=== PATIENT | male | born 1990 | race Caucasian/White ===

== ENCOUNTER 2021-10-02 13:54 | Emergency (ER) | payer MEDICAID, SELFPAY ==
[2021-10-02 14:07] VITALS: BP 113/45; PULSE 76; RESP 16; TEMP 36.1; O2SAT 100; BMI 25.8
[2021-10-02 15:58] LABS: Appearance Urine CLEAR; Color Urine YELLOW; Glucose Urine UA NEG (NEG); Leukocyte Esterase Urine NEG (NEG); Nitrite Urine NEG (NEG); Urine Blood NEG (NEG); Urine Ketones NEG (NEG); Urine Protein NEG (NEG-TRACE)
[2021-10-02] MEDS: cefTRIAXone sodium 500 MG, Lidocaine HCl 1 % MPF 1 ML IM (16:38)
[2021-10-02] MEDS: Lidocaine HCl 1 % 20 ML VIAL INFILTRATI (16:39)
--- NOTE | 2021-10-02 19:29 | ED.MALEGU ---
HPI - Male Genitourinary General Chief complaint: Urogenital-Male Stated complaint: STD CHECK Time Seen by Provider: 10/02/21 15:39 Source: patient Mode of arrival: ambulatory Limitations: no limitations History of Present Illness HPI Narrative: 30-year-old male who had unprotected vaginal sex 1 week ago and has recently had discharge from his penis. States he has some mild discomfort when he urinates. No pain in his testicles, no penile lesions. Patient is also concerned about red area in his right groin that he states is from shaving. Related Data Previous Rx's Medication Instructions Recorded doxycycline hyclate 100 mg tablet 100 mg PO BID 10 Days #20 tab 10/02/21 mupirocin 2 % topical ointment 1 appl TOPICAL BID #22 g 10/02/21 Allergies Allergy/AdvReac Type Severity Reaction Status Date / Time No Known Allergies Allergy Verified 10/02/21 14:06 Review of Systems Constitutional: Constitutional: Denies body ache(s), Denies chills, Denies fatigue, Denies fever(s), Denies headache(s), Denies malaise and Denies weakness Eyes: Eyes: Denies diplopia ENT: Denies vertigo, Denies dizziness, Denies headache(s) and Denies throat swelling Cardiovascular: Cardiovascular: Denies chest pain, Denies syncope, Denies leg edema, Denies lightheadedness, Denies Loss of Consciousness, Denies palpitations and Denies dyspnea Respiratory: Respiratory: Denies chest congestion, Denies cough and Denies dyspnea Gastrointestinal: Gastrointestinal: Denies abdominal pain, Denies hematochezia, Denies constipation, Denies diarrhea and Denies vomiting Genitourinary: Genitourinary: Denies hematuria, Denies difficulty urinating, Denies genital lesions, Denies genital pain, Reports dysuria, Denies flank pain, Reports penile discharge, Denies scrotal swelling, Denies testicular mass, Denies testicular pain, Denies urinary frequency, Denies urinary hesitancy, Denies urinary incontinence and Denies urinary urgency Musculoskeletal: Musculoskeletal: Reports no additional musculoskeletal complaints Neurologic: Denies confusion, Denies vertigo, Denies dizziness, Denies syncope, Denies headache(s) and Denies weakness Psychiatric: Psychiatric: Denies anxiety, Denies confusion and Denies depression Endocrine: Endocrine: Denies fatigue and Denies palpitations Allergic/Immunologic: Allergic/Immunologic: Denies throat swelling PMFSH Past Medical History Medical History (Updated 10/02/21 @ 16:17 by DANY Rothman) No known health problems Social History Social History Advance Directives: Yes Advance Directives Information Provided: Yes Advance Directives on File: No Physical Exam Vital Signs: Vital Signs: Last Vital Signs Temp 97.0 F 10/02/21 14:07 Pulse 76 10/02/21 14:07 Resp 16 10/02/21 14:07 BP 113/45 L 10/02/21 14:07 Pulse Ox 100 10/02/21 14:07 BMI result Body Mass Index 25.8 Const: General: No confusion Nutritional Appearance: well nourished Orientation/consciousness: No confusion Limitations: no limitations Eyes: Conjunctivae: conjunctivae normal Pupils: Equal, round and reactive pupils present EOM: EOMs intact bilaterally Neck: Neck: Yes full ROM, Yes no lymphadenopathy and Yes supple Resp: Effort & Inspection: normal respiratory effort and able to speak in complete sentences Auscultation: clear to auscultation bilaterally, no crackles, no rales, no rhonchi and no wheezes Cardio: Rate: regular rate Rhythm: regular rhythm Heart sounds: S1 normal heart sound present and S2 normal heart sound present GI: Inspection: Yes normal to inspection Palpation (GI): Soft to palpation, nontender, no guarding and not rigid Percussion: Yes normal to percussion Auscultation: normal bowel sounds : General: Yes no CVA tenderness Male General Exam: Yes normal external exam and No Genital lesions present Penis: normal penis, circumcised, no ecchymosis, not edematous, not erythematous, no masses, no nodules, no papules, no pustules, no vesicles, foreskin retracts, no paraphimosis, no phimosis, no swelling, no ulcerations and No Genital lesions present Meatus: meatus normal Scrotum: scrotum normal Testes: Testes normal, epididymides normal, no testicular mass, no testicular swelling and no testicular tenderness Back/Spine/Pelvis: Back: no CVA tenderness Skin: General skin exam: no rashes or lesions noted Neuro: General: No confusion Cranial nerves: Yes Equal, round and reactive pupils present Extrem: General: Yes normal to inspection and Yes full ROM Psych: Appearance: grossly normal Affect: normal affect Attitude: cooperative Thought process: Normal thought process present Course Course Course Narrative: 30-year-old male here for concerns of STDs. Patient has a normal genital exam, mild folliculitis in the right side of his groin. Got blood work, HIV, hepatitis, syphilis, treated for folliculitis with mupirocin, got urine for gonorrhea and Chlamydia, treated for gonorrhea and chlamydia with ceftriaxone and doxycycline. Extensive discussion with patient about safe sex practices, counseled patient how to follow-up for his STD results MDM - Male Genitourinary Lab Data Labs: Lab Results 10/02/21 Range/Units 15:41 Urine Color YELLOW Urine Appearance CLEAR Urine pH 7.0 (5.0-8.0) Ur Specific [place] [facility] 1.020 (1.005-1.025) Urine Protein NEG (NEG-TRACE) MG/DL Urine Glucose (UA) NEG (NEG) MG/DL Urine Ketones NEG (NEG) MG/DL Urine Blood NEG (NEG) Urine Nitrite NEG (NEG) Ur Leukocyte Esterase NEG (NEG) Discharge Plan Discharge Clinical Impression: Possible exposure to STD Patient Disposition: Home, Self-Care Instructions: Sexually Transmitted Diseases (ED), Safe Sex Practices (ED) Additional Instructions: Please practice safe sex, use condoms. We have treated due for gonorrhea and chlamydia, take the antibiotics I prescribed for 7 days. We will call you if your syphilis, HIV, or hepatitis labs come back positive. As we discussed, HIV will not result positive right away, and he must follow-up with your primary care provider for serial lab draws to determine your HIV status. Please return to emergency room for any new or concerning symptoms. Please apply the cream I prescribed to your groin area that is red twice a day for a week. Prescriptions: New mupirocin 2 % ointment 1 appl topical BID Qty: 22 0RF doxycycline hyclate 100 mg tablet 100 mg PO BID 10 Days Qty: 20 0RF Interventions: ED Discharge Assessment Last Done: 10/02/21 16:43 Discharge Date/Time: 10/02/21 16:45
[2021-10-03 01:02] LABS: CT PCR DETECTED (Not Detect.); NG PCR NOT DETECTED (Not Detect.)
[2021-10-03 07:49] LABS: ~HepC Num1 0.19 S/CO (0.00-0.79); ~Hepatitis C Antibody Nonreactive (Nonreactive)
[2021-10-03 07:57] LABS: Syphilis Screen Nonreactive (Nonreactive)
[2021-10-03 08:05] LABS: HBS Num1 > 1000.00 mIU/mL (0-7.99); HIV AB/AG Nonreactive (Nonreactive); HIV Num 1 0.11 S/CO (0.00-0.99); Hepatitis B Core Antibody Nonreactive (Nonreactive); Hepatitis B Surface Antigen Negative (Negative); ~Hepatitis B Surface Antibody REACTIVE (Nonreactive)
[2021-10-05 08:15] LABS: Hepatitis A Antibody IgM 0.33 Index (0-0.79); ~Hepatitis A Antibody IgM Nonreactive (Nonreactive)
[2021-10-05 08:24] LABS: HBc Num1 0.13 S/CO (0.00-0.79); HBsAGNum1 0.19 S/CO (0.00-0.99)
== END 2021-10-02 16:45 | disposition home or self-care (01) ==
PROVIDERS: Physician Assistant; Emergency Provider Emergency Medicine
DX: A56.8 Sexually transmitted chlamydial infection of other sites (principal); L73.9 Follicular disorder, unspecified
CPT/HCPCS: 36415; 81003; 86704; 86706; 86709; 86780; 86803; 87340; 87389; 87491; 87591; 96372; 99283; 99284; J0696